=== PATIENT | male | born 1970 | race American Indian/Alaskan Native ===

== ENCOUNTER 2017-08-25 01:21 | Emergency (ER) | payer SELFPAY ==
[2017-08-25 01:22] VITALS: BMI 29.6
[2017-08-25 01:31] VITALS: RESP 18; O2SAT 100
--- NOTE | 2017-08-25 01:44 | ED PDOC ---
Arrival/HPI - General Chief Complaint: Chest Pain Time Seen by Provider: 08/25/17 01:27 Historian: Patient, Police - History of Present Illness Narrative History of Present Illness (Text): 08/25/17 01:43 47 year old, with no significant past medical history, whose social history includes drinking alcohol and substance abuse, presents to the emergency department in police custody for developed chest pain and withdrawal symptoms. Patient uses heroin, alcohol, and xanax on a regular basis. Patient has no cardiac history and recently at the hospital for pulmonary mass. Patient denies any fever, chills, shortness of breath, nausea, vomiting, diarrhea, urinary symptoms, back pain, neck pain, headache, dizziness, or any other complaints. Symptom Onset: Gradual Symptom Course: Unchanged Activities at Onset: Light Context: Other (Police custody ) Past Medical History - Provider Review Nursing Documentation Reviewed: Yes - Cardiac Hx Hypertension: Yes - Pulmonary Hx Respiratory Disorders: No - Neurological Hx Neurological Disorder: No - HEENT Hx HEENT Disorder: No - Renal Hx Renal Disorder: No - Endocrine/Metabolic Hx Endocrine Disorders: No - Hematological/Oncological Hx Blood Disorders: No - Integumentary Hx Dermatological Disorder: No - Musculoskeletal/Rheumatological Hx Musculoskeletal Disorders: No - Gastrointestinal Hx Gastrointestinal Disorders: No - Genitourinary/Gynecological Hx Genitourinary Disorders: No - Psychiatric Hx Psychophysiologic Disorder: Yes Hx Anxiety: Yes Hx Depression: Yes Hx Substance Use: Yes (last consumed on 08/21/2017) Family/Social History - Physician Review Nursing Documentation Reviewed: Yes Family/Social History: No Known Family HX Smoking Status: Heavy Smoker > 10 Cigarettes Daily Hx Alcohol Use: Yes Frequency of alcohol use: Daily Hx Substance Use: Yes (last consumed on 08/21/2017) Substance used: heroin and xanax Allergies/Home Meds Allergies/Adverse Reactions: Allergies No Known Allergies Allergy (Verified 08/25/17 01:29) Home Medications: Home Meds Medication Instructions Recorded Confirmed No Known Home Med 04/13/16 08/25/17 Review of Systems - Physician Review All systems were reviewed & negative as marked: Yes - Review of Systems Constitutional: absent: Fevers, Other (Chills) Respiratory: absent: SOB Cardiovascular: Chest Pain Gastrointestinal: absent: Diarrhea, Nausea, Vomiting Genitourinary Male: absent: Dysuria, Frequency, Hematuria Musculoskeletal: absent: Back Pain, Neck Pain Neurological: absent: Headache, Dizziness Physical Exam Vital Signs Reviewed: Yes Vital Signs Temp Pulse Resp BP Pulse Ox 08/25/17 01:29 98.6 F 62 18 145/77 100 Temperature: Afebrile Blood Pressure: Normal Pulse: Regular Respiratory Rate: Normal Appearance: Positive for: Well-Appearing, Non-Toxic, Other (Anxious) Pain Distress: None Mental Status: Positive for: Alert and Oriented X 3 - Systems Exam Head: Present: Atraumatic, Normocephalic Pupils: Present: PERRL Extroacular Muscles: Present: EOMI Conjunctiva: Present: Normal Mouth: Present: Moist Mucous Membranes ([place] and moist) Neck: Present: Normal Range of Motion Respiratory/Chest: Present: Clear to Auscultation, Good Air Exchange. No: Respiratory Distress, Accessory Muscle Use Cardiovascular: Present: Regular Rate and Rhythm, Normal S1, S2. No: Murmurs Abdomen: Present: Normal Bowel Sounds. No: Tenderness, Distention, Peritoneal Signs Back: Present: Normal Inspection Upper Extremity: Present: Normal Inspection. No: Cyanosis, Edema Lower Extremity: Present: Normal Inspection. No: Edema Neurological: Present: GCS=15, CN II-XII Intact, Speech Normal, Other (Slightly tremulous ) Skin: Present: Warm, Dry, Normal Color. No: Rashes Psychiatric: Present: Alert, Oriented x 3, Normal Insight, Normal Concentration , Anxious Medical Decision Making ED Course and Treatment: 08/25/17 01:43 Impression: 47 year old male presents in police custody for developed chest pain and withdrawal symptoms. Patient uses heroin, alcohol, and xanax on a daily basis. Plan: -- Ativan -- Reassess and disposition Progress Notes: - Medication Orders Current Medication Orders: Discontinued Medications Lorazepam (Ativan) 2 mg IM ONCE ONE PRN Reason: Protocol Stop: 08/25/17 01:39 Last Admin: 08/25/17 01:50 Dose: 2 mg IM Administration Charges Document 08/25/17 01:50 AB (Rec: 08/25/17 01:50 AB [id number]) Injection Site MAR Injection Site Right Deltoid Charges for Administration # of IM Administrations 1 - Scribe Statement The provider has reviewed the documentation as recorded by the Bryson Almeida Provider Scribe Attestation: All medical record entries made by the Scribe were at my direction and personally dictated by me. I have reviewed the chart and agree that the record accurately reflects my personal performance of the history, physical exam, medical decision making, and the department course for this patient. I have also personally directed, reviewed, and agree with the discharge instructions and disposition. Disposition/Present on Arrival - Present on Arrival Any Indicators Present on Arrival: No History of DVT/PE: No History of Uncontrolled Diabetes: No Urinary Catheter: No History of Decub. Ulcer: No History Surgical Site Infection Following: None - Disposition Have Diagnosis and Disposition been Completed?: Yes Diagnosis: Chest pain, Withdrawal syndrome Disposition: RELEASED IN POLICE CUSTODY Disposition Time: 02:15 Patient Plan: Discharge Condition: GOOD Discharge Instructions (ExitCare): Chest Pain (ED) Forms: [facility] ([place])
[2017-08-25 02:47] VITALS: BP 130/72; PULSE 81; TEMP 97.8
== END 2017-08-25 02:22 ==
LOC: ED 01:21
DX: R07.9 Chest pain, unspecified (principal); F19.939 Other psychoactive substance use, unspecified with withdrawal, unspecified; F17.210 Nicotine dependence, cigarettes, uncomplicated; I10 Essential (primary) hypertension
CPT/HCPCS: 96372; 99283; J2060

== ENCOUNTER 2017-10-03 20:10 | Emergency (ER) | payer SELFPAY ==
[2017-10-03 20:12] VITALS: BMI 29.6
--- NOTE | 2017-10-03 20:41 | ED PDOC ---
Arrival/HPI - General Chief Complaint: Chest Pain Time Seen by Provider: 10/03/17 20:31 Historian: Patient - History of Present Illness Narrative History of Present Illness (Text): 10/03/17 20:38 you were treated in the ED today for non-radiating midsternal chest pain since 05:00 this morning with associated shortness of breath. Otherwise without any nausea/vomiting/headache/dizziness/abdomen pain/numbness/tingling/loss of limb function/pain with urination. No history of recent travel, DVT/PE or cancer. Last used cocaine 1 month ago in August 2017. Denies thoughts to harm yourself or others or hallucinations. 10/03/17 21:54 Time/Duration: Other (this morning) Symptom Course: Unchanged Past Medical History - Provider Review Nursing Documentation Reviewed: Yes - Infectious Disease Hx of Infectious Diseases: None - Cardiac Hx Cardiac Disorders: Yes Hx Hypertension: Yes - Pulmonary Hx Respiratory Disorders: No - Neurological Hx Neurological Disorder: No - HEENT Hx HEENT Disorder: No - Renal Hx Renal Disorder: No - Endocrine/Metabolic Hx Endocrine Disorders: No - Hematological/Oncological Hx Blood Disorders: No - Integumentary Hx Dermatological Disorder: No - Musculoskeletal/Rheumatological Hx Musculoskeletal Disorders: No - Gastrointestinal Hx Gastrointestinal Disorders: No - Genitourinary/Gynecological Hx Genitourinary Disorders: No - Psychiatric Hx Psychophysiologic Disorder: Yes Hx Anxiety: Yes Hx Depression: Yes Hx Substance Use: Yes (last consumed on 08/21/2017) - Anesthesia Hx Anesthesia: No Family/Social History - Physician Review Nursing Documentation Reviewed: Yes Family/Social History: No Known Family HX Smoking Status: Heavy Smoker > 10 Cigarettes Daily Hx Alcohol Use: Yes Hx Substance Use: Yes (last consumed on 08/21/2017) Substance used: heroin and xanax Allergies/Home Meds Allergies/Adverse Reactions: Allergies No Known Allergies Allergy (Verified 10/03/17 20:31) Home Medications: Home Meds Medication Instructions Recorded Confirmed No Known Home Med 04/13/16 10/03/17 Review of Systems - Physician Review All systems were reviewed & negative as marked: Yes - Review of Systems Respiratory: SOB Cardiovascular: Chest Pain Gastrointestinal: absent: Abdominal Pain, Nausea, Vomiting Genitourinary Male: absent: Dysuria Neurological: absent: Headache, Dizziness, Focal Weakness Physical Exam Vital Signs Temp Pulse Resp BP Pulse Ox 10/03/17 20:30 98.4 F 63 17 137/70 97 Appearance: Positive for: Well-Appearing, Non-Toxic, Comfortable Pain Distress: None Mental Status: Positive for: Alert and Oriented X 3 - Systems Exam Head: Present: Atraumatic, Normocephalic Pupils: Present: PERRL Extroacular Muscles: Present: EOMI Conjunctiva: Present: Normal Mouth: Present: Moist Mucous Membranes Neck: Present: Normal Range of Motion Respiratory/Chest: Present: Clear to Auscultation, Good Air Exchange. No: Respiratory Distress, Accessory Muscle Use, Tender to Palpation Cardiovascular: Present: Regular Rate and Rhythm, Normal S1, S2. No: Murmurs Abdomen: Present: Normal Bowel Sounds. No: Tenderness, Distention, Peritoneal Signs Back: Present: Normal Inspection Upper Extremity: Present: Normal Inspection. No: Cyanosis, Edema Lower Extremity: Present: Normal Inspection. No: Edema Neurological: Present: GCS=15, CN II-XII Intact, Speech Normal Skin: Present: Warm, Dry, Normal Color. No: Rashes Psychiatric: Present: Alert, Oriented x 3, Normal Insight, Normal Concentration Medical Decision Making ED Course and Treatment: 10/03/17 20:38 you were treated in the ED today for non-radiating midsternal chest pain since 05:00 this morning with associated shortness of breath. Otherwise without any nausea/vomiting/headache/dizziness/abdomen pain/numbness/tingling/loss of limb function/pain with urination. No history of recent travel, DVT/PE or cancer. Last used cocaine 1 month ago in August 2017. Denies thoughts to harm yourself or others or hallucinations. You were otherwise breathing easily, pink/moist lips, you were talking easily with your , good strength/sensation, alert/ oriented, walking easily, clear lungs, no abdomen tenderness, no fever temp 98.4 , stable heart rate 63, stable breathing rate 17, excellent oxygen level 100% room air, elevated blood pressure 137/70 which we recommend repeat in 2-3 days primary care office to determine further treatment, you have blood tests no infection count 7.2, stable blood level hemoglobin 11.8/platelets 194, stable chemistry, heart blood test negative less than 0.01, low risk of blood clot negative less than 200, urine test refused and cautioned for missed diagnosis/ complications, radiology chest xray no acute, ECG sinus bradycardia, aspirin, observation done in the ED with improvement, recommended to stay further for observation/care but you refused and cautioned for complications/ but you stated you have a family matter to attened too, counselled to stop smoking, continue to stop using drugs and thus discharged home with . 1. Recommend follow-up primary care 1-2 days to review symptoms, referral to cardiology clinic. 2. If any worsening pain, fever, chills, nausea, vomiting, difficulty breathing, numbness, loss of limb function, pain with urination or any medical condition then return to the ED. Reassessment Condition: Re-examined, Improved - Lab Interpretations Lab Results: 10/03/17 20:30 10/03/17 20:30 Lab Results 10/03/17 20:30: Sodium 141, Potassium 3.9, Chloride 106, Carbon Dioxide 26, Anion Gap 13, BUN 7, Creatinine 0.8, Est GFR ( Amer) > 60, Est GFR (Non- Af Amer) > 60, Random Glucose 102, Calcium 9.6, Magnesium 1.9, Total Bilirubin 0.3, AST 27, ALT 21, Alkaline Phosphatase 57, Lactate Dehydrogenase 413, Total Creatine Kinase 159, Troponin I < 0.01, NT-Pro-B Natriuret Pep 40.6, Total Protein 7.0, Albumin 3.8, Globulin 3.2, Albumin/Globulin Ratio 1.2 10/03/17 20:30: PT 11.8, INR 1.03, APTT 29.5, D-Dimer, Quantitative < 200 10/03/17 20:30: WBC 7.2 D, RBC 4.07, Hgb 11.8 L, Hct 35.4 L, MCV 87.0, MCH 29.0 , MCHC 33.3, RDW 14.8 H, Plt Count 194, MPV 11.6 H, Gran % 54.0, Lymph % (Auto) 37.1 H, [place] % (Auto) 7.2 H, Eos % (Auto) 1.4 L, Baso % (Auto) 0.3, Gran # 3.88 , Lymph # (Auto) 2.7, [place] # (Auto) 0.5, Eos # (Auto) 0.1, Baso # (Auto) 0.02 I have reviewed the lab results: Yes - RAD Interpretation Radiology Orders: 10/03/17 20:42 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 Ulcer: No History Surgical Site Infection Following: None - Disposition Have Diagnosis and Disposition been Completed?: Yes Diagnosis: Chest pain Disposition: AGAINST MEDICAL ADVICE Disposition Time: 22:06 Patient Plan: Discharge Condition: IMPROVED Discharge Instructions (ExitCare): Chest Pain (ED) Referrals: Jonathan Lu MD [Primary Care Provider] - Follow up with primary Forms: [employer] ([place])
[2017-10-03 20:45] VITALS: BP 137/70; PULSE 63; TEMP 98.4
[2017-10-03 21:17] LABS: BASO # 0.02 K/mm3 (0.0-2.0); BASO % 0.3 % (0.0-3.0); EOS # 0.1 (0.0-0.7); EOS % 1.4 % (1.5-5.0); GRAN # 3.88 (1.4-6.5); HEMOGLOBIN 11.8 g/dL (14.0-18.0); LYMPH # 2.7 (1.2-3.4); LYMPH % 37.1 % (22.0-35.0); MEAN CORPUSCULAR HGB CONC 33.3 g/dl (31.0-37.0); MEAN PLATELET VOLUME 11.6 fl (7.0-11.0); MONO # 0.5 (0.1-0.6); MONO % 7.2 % (1.0-6.0); RBC 4.07 10^6/uL (3.5-6.1); RED CELL DISTRIBUTION WIDTH 14.8 % (11.5-14.5); WHITE BLOOD COUNT 7.2 10^3/ul (4.5-11.0)
[2017-10-03 21:29] LABS: ALB/GLOB RATIO 1.2 (1.1-1.8); ALBUMIN 3.8 g/dL (3.0-4.8); ALT/SGPT 21 U/L (7-56); AST/SGOT 27 U/L (17-59); BLOOD UREA NITROGEN 7 mg/dL (7-21); CALCIUM 9.6 mg/dL (8.4-10.5); GFR AFRICAN-AMERICAN > 60; GFR NON-AFRICAN AMERICAN > 60; MAGNESIUM 1.9 mg/dL (1.7-2.2)
[2017-10-03 21:40] LABS: D DIMER < 200 ng/mL (0-243); INR 1.03 (0.93-1.08); PARTIAL THROMBOPLASTIN TIME 29.5 Seconds (25.1-36.5); PROTHROMBIN TIME 11.8 SECONDS (9.4-12.5)
[2017-10-03 21:41] LABS: B-TYPE NATRIURETIC PEPTIDE 40.6 pg/mL (0-450); TROPONIN I < 0.01 ng/mL
[2017-10-03 22:20] VITALS: RESP 18; O2SAT 98
--- NOTE | 2017-10-04 09:49 | RAD ---
HISTORY: 47yoM, with chest pain COMPARISON: No prior. FINDINGS: LUNGS: The lungs are well inflated and clear. PLEURA: No significant pleural effusion identified, no pneumothorax apparent. CARDIOVASCULAR: Normal. OSSEOUS STRUCTURES: No significant abnormalities. VISUALIZED UPPER ABDOMEN: Normal. OTHER FINDINGS: None. IMPRESSION: No active pulmonary disease.
--- NOTE | 2017-10-04 10:34 | CARD ---
APPROVED REPORT EKG Measurement Heart [id number] <Conclusion> Sinus bradycardia Otherwise normal ECG
== END 2017-10-03 22:20 | disposition left against medical advice (07) ==
LOC: ED 20:10
DX: R07.9 Chest pain, unspecified (principal); I10 Essential (primary) hypertension; F17.200 Nicotine dependence, unspecified, uncomplicated